=== PATIENT | female | born 1960 | race Caucasian/White ===

== ENCOUNTER 2024-03-22 08:12 | Day surgery (SDC) | payer BC ==
[~2024-03-22 08:12] MED LIST: Sodium Chloride 0.9% 10 ML Syringe FLUSH PRN; Sodium Chloride 0.9% 2.5 ML Syringe FLUSH PRN; Sodium Chloride 0.9% 20 ML SDV IV PRN
[2024-03-22] MEDS: Lactated Ringers 1,000 ML IV SCH (08:44)
[2024-03-22] MEDS ORDERED: propofoL 500 MG/50 ML 50 ML ONE (10:46)
== END 2024-03-22 11:40 | disposition home or self-care (01) ==
LOC: MW.SDS 08:12
PROVIDERS: ATTEND Surgery
DX: Z12.11 Encounter for screening for malignant neoplasm of colon (principal); D12.5 Benign neoplasm of sigmoid colon; R19.5 Other fecal abnormalities; Z79.899 Other long term (current) drug therapy
CPT/HCPCS: 45380; J2704; J7120; 00811